=== PATIENT | male | born 1980 | race Caucasian/White ===

== ENCOUNTER 2021-02-26 15:24 | Outpatient (CLI) | payer OTHER | END 2021-02-26 15:25 | disposition home or self-care (01) | LOC: COV 15:24 | PROVIDERS: ATTEND Family Medicine | DX: R05 Cough (principal); R68.83 Chills (without fever); R09.81 Nasal congestion; J34.89 Other specified disorders of nose and nasal sinuses; Z20.822 Contact with and (suspected) exposure to COVID-19 ==

== ENCOUNTER 2021-04-08 14:26 | Outpatient (CLI) | payer OTHER ==
--- NOTE | 2021-04-08 15:05 | XRAY Report ---
PROCEDURE: Thoracic Spine 2 View INDICATIONS: SHOULDER PAIN TECHNIQUE: 3 views of the thoracic spine were acquired. COMPARISON: None. FINDINGS: THORACIC SPINE: No acute, displaced fracture or retropulsion. Dextrocurvature of the thoracic spine. The vertebral body heights and intervertebral disc spaces are maintained. SOFT TISSUES: No prevertebral soft tissue thickening. IMPRESSION: 1. No acute osseous abnormality of the thoracic spine. Reviewed by: Marvin Ocampo MD on 04/08/2021 3:04 PM PDT Approved by: Marvin Ocampo MD on 04/08/2021 3:04 PM PDT Station ID: [id number]
--- NOTE | 2021-04-08 15:08 | XRAY Report ---
PROCEDURE: Cervical Spine 2 View INDICATIONS: BILAT SHOULDER PAIN TECHNIQUE: 3 view(s) of the cervical spine were acquired. COMPARISON: None. FINDINGS: C-SPINE: No acute, displaced fracture or malalignment. The vertebral body heights and intervertebral disc spaces are maintained. SOFT TISSUES: No prevertebral soft tissue thickening. IMPRESSION: 1.No acute osseous abnormality of the cervical spine. Reviewed by: Marvin Ocampo MD on 04/08/2021 3:07 PM PDT Approved by: Marvin Ocampo MD on 04/08/2021 3:07 PM PDT Station ID: [id number]
--- NOTE | 2021-04-08 15:12 | XRAY Report ---
PROCEDURE: Shoulder 3 View BILAT INDICATIONS: BILATERAL SHOULDER PAIN TECHNIQUE: 3 views of the bilateral shoulders were acquired. COMPARISON: None. FINDINGS: BONES: No acute, displaced fracture or dislocation. The glenohumeral and acromioclavicular joint spac es are maintained. Minimal bony protuberance of the right proximal humerus, which may reflect remote avulsion injury. SOFT TISSUES: No focal abnormality or appreciable pneumothorax. IMPRESSION: 1.No acute osseous abnormality. Reviewed by: Marvin Ocampo MD on 04/08/2021 3:10 PM PDT Approved by: Marvin Ocampo MD on 04/08/2021 3:10 PM PDT Station ID: [id number]
== END 2021-04-08 14:27 | disposition home or self-care (01) ==
LOC: DI.S 14:26
PROVIDERS: ATTEND Nurse Practitioner Family
DX: M25.511 Pain in right shoulder (principal); M25.512 Pain in left shoulder

== ENCOUNTER 2022-04-01 10:42 | Outpatient (CLI) | payer OTHER ==
--- NOTE | 2022-04-01 11:02 | XRAY Report ---
PROCEDURE: Chest 2 View X-Ray INDICATIONS: COUGH TECHNIQUE: 2 view(s) of the chest. COMPARISON: 04/08/2021 FINDINGS: Left upper lobe pulmonary nodule measuring 7 mm is unchanged from 04/08/2021 thoracic spine radiograp hs. Lungs otherwise clear. No pleural effusion or pneumothorax. Heart size normal. IMPRESSION: Approximately 7 mm nodular opacity in the left upper lobe is unchanged from 04/08/2021. Reviewed by: Anastacio Valle MD on 04/01/2022 11:01 AM PDT Approved by: Anastacio Valle MD on 04/01/2022 11:01 AM PDT Station ID: [id number]
[2022-04-01 14:45] LABS: BASOPHILS % (AUTO) 0.5 %; EOSINOPHILS # (AUTO) 0.1 10^3/uL (0.0-0.7); EOSINOPHILS % (AUTO) 0.7 %; HCT - HEMATOCRIT 44.8 % (42.0-52.0); HGB - HEMOGLOBIN 14.7 g/dL (14.0-18.0); LYMPHOCYTES # (AUTO) 4.3 10^3/uL (1.5-3.5); LYMPHOCYTES % (AUTO) 58.7 %; MEAN CORPUSCULAR HEMOGLOBIN 29.2 pg (27.0-31.0); MEAN CORPUSCULAR HGB CONC 32.8 g/dL (32.0-36.0); MEAN CORPUSCULAR VOLUME 88.9 fL (80.0-94.0); MEAN PLATELET VOLUME 10.1 fL (7.4-11.4); MONOCYTES # (AUTO) 0.6 10^3/uL (0.0-1.0); MONOCYTES % (AUTO) 7.7 %; NEUTROPHILS # (AUTO) 2.2 10^3/uL (1.5-6.6); NEUTROPHILS % (AUTO) 30.2 %; PLT - PLATELET COUNT 217 10^3/uL (130-450); RED BLOOD COUNT 5.04 10^6/uL (4.70-6.10); RED CELL DISTRIBUTION WIDTH 13.1 % (12.0-15.0); WHITE BLOOD COUNT 7.3 x10^3/uL (4.8-10.8)
[2022-04-01 14:50] LABS: SLIDE REVIEW? Indicated
[2022-04-01 15:25] LABS: ALBUMIN 4.2 g/dL (3.2-5.5); ALBUMIN/GLOBULIN RATIO 1.2 (1.0-2.2); BILIRUBIN,TOTAL 0.7 mg/dL (0.2-1.0); CALCIUM 9.4 mg/dL (8.5-10.3); CREATININE 0.9 mg/dL (0.6-1.2); POTASSIUM 4.4 mmol/L (3.5-5.0); TOTAL PROTEIN 7.6 g/dL (6.7-8.2)
[2022-04-01 15:29] LABS: PLATELET ESTIMATE, MANUAL NORMAL (130-450,000) (NORMAL); PLATELET MORPHOLOGY NORMAL APPEARANCE (NORMAL); RBC MORPHOLOGY (MULTIPLE) NORMAL APPEARANCE (NORMAL)
[2022-04-01 15:36] LABS: THYROID STIMULATING HORMONE 2.48 uIU/mL (0.34-5.60)
== END 2022-04-01 10:43 | disposition home or self-care (01) ==
LOC: DI.S 10:42
PROVIDERS: ATTEND Physician Assistant Medical
DX: R05.9 Cough, unspecified (principal); R07.81 Pleurodynia; R91.8 Other nonspecific abnormal finding of lung field
CPT/HCPCS: 36415; 80053; 84443; 85025; 85027

== ENCOUNTER 2022-04-01 18:54 | Outpatient (CLI) | payer OTHER | END 2022-04-01 18:55 | disposition critical access hospital (66) | LOC: EMS 18:54 | DX: T78.05XA Anaphylactic reaction due to tree nuts and seeds, initial encounter (principal); R06.00 Dyspnea, unspecified; R60.0 Localized edema; H57.89 Other specified disorders of eye and adnexa; R09.89 Other specified symptoms and signs involving the circulatory and respiratory systems; R23.2 Flushing | CPT/HCPCS: A0425; A0427 ==

== ENCOUNTER 2022-04-01 19:25 | Emergency (ER) | payer OTHER ==
[2022-04-01] MEDS ORDERED: predniSONE 20 MG TABLET PO STA (19:30)
--- NOTE | 2022-04-01 20:35 | ED Physician Documentation ---
History of Present Illness - Stated complaint Stated Complaint: ALLERGIC REACTION - Chief complaint Chief Complaint: Allergic Rx - History obtained from History obtained from: Patient, Family, EMS - History of Present Illness Timing: Today Pain level max: 0 Pain level now: 0 - Additonal information Additional information: Patient is a 41-year-old male brought in by EMS for anaphylactic reaction. He apparently ate a horse [place] today. Does not have any history of prior allergic reactions. He was given epinephrine and Benadryl by EMS. He states he is feeling much improved now. Was having facial swelling, throat swelling and difficulty breathing. The medications were given about an hour prior to arr ival. Review of Systems Ten Systems: 10 systems reviewed and negative Constitutional: denies: Fever, Chills Respiratory: denies: Cough GI: denies: Abdominal Pain, Vomiting, Diarrhea Skin: denies: Rash Musculoskeletal: denies: Neck pain, Back pain Neurologic: denies: Headache PD PAST MEDICAL HISTORY - Past Medical History Past Medical History: No - Past Surgical History Past Surgical History: No - Present Medications Home Medications: Ambulatory Orders Medication Instructions Recorded Confirmed EPINEPHrine [Epinephrine] 0.3 mg IJ ONCE PRN #1 each 04/01/22 predniSONE [Deltasone] 40 mg PO DAILY #10 tablet 04/01/22 - Allergies Allergies/Adverse Reactions: Allergies Allergy/AdvReac Type Severity Reaction Status Date / Time Penicillins Allergy Anaphylaxis Verified 04/01/22 19:29 - Social History Does the pt smoke?: No Smoking Status: Never smoker Does the pt drink ETOH?: No Does the pt have substance abuse?: No - Immunizations Immunizations are current?: Yes PD ED PE NORMAL - Vitals Vital signs reviewed: Yes - General General: Alert and oriented X 3, No acute distress - HEENT HEENT: Moist mucous membranes, Pharynx benign, Other (Normal phonation. No trismus. No stridor. No wheezing) - Neck Neck: Supple, no meningeal sign - Cardiac Cardiac: RRR, Strong equal pulses - Respiratory Respiratory: No respiratory distress, Clear bilaterally - Abdomen Abdomen: Soft, Non tender, Non distended - Derm Derm: Warm and dry, No rash - Neuro Neuro: Alert and oriented X 3 - Psych Psych: Normal mood, Normal affect Results - Vitals Vitals: Vital Signs - 24 hr 04/01/22 04/01/22 04/01/22 19:29 20:02 20:30 Temperature 36.8 C Heart Rate 76 73 68 Respiratory 12 16 14 Rate Blood Pressure 120/70 113/68 115/70 O2 Saturation 99 97 98 Oxygen O2 Source Room air PD MEDICAL DECISION MAKING - ED course Complexity details: re-evaluated patient, considered differential, d/w patient, d/w family ED course: 41-year-old male with anaphylactic reaction to a horse [place] tonight. He was given prednisone upon arrival here. He had already been given epinephrine and Benadryl with EMS. He was monitored for approximately 2-1/2 hours post epinephrine injection. No recurrence of symptoms. Patient remained asymptomatic. No difficulty breathing. We did discuss with poison control, they state that the chest not should not have any toxic effects. Patient and family counseled regarding signs and symptoms for which I believe and urgent re- evaluation would be necessary. Patient with good understanding of and agreement to plan and is comfortable going home at this time This document was made in part using voice recognition software. While efforts are made to proofread this document, sound alike and grammatical errors may occur. Departure - Departure Disposition: 01 Home, Self Care Clinical Impression: Anaphylactic reaction Qualifiers: Encounter type: initial encounter Qualified Code(s): T78.2XXA - Anaphylactic shock, unspecified, initial encounter Condition: Good Instructions: ED Allergic Reaction General Other Follow-Up: MARGIE BAUER ARNP [Primary Care Provider] - Within 1 week Prescriptions: predniSONE [Deltasone] 40 mg PO DAILY #10 tablet EPINEPHrine [Epinephrine] 0.3 mg IJ ONCE PRN #1 each PRN Reason: Anaphylaxis Comments: Your prescriptions were sent to [facility] in [place]. Please follow-up with your doctor for further care as needed. Please return if you worsen. If you need to use the epinephrine pen, you need to be seen right away in the emergency department as the epinephrine pen buys you time to get to medical care.
[2022-04-01 21:14] VITALS: BP 110/68
== END 2022-04-01 21:14 | disposition home or self-care (01) ==
LOC: ED 19:25
DX: T78.05XA Anaphylactic reaction due to tree nuts and seeds, initial encounter (principal)
CPT/HCPCS: 99283; 99284; J7512; 36415; 80053; 84443; 85025; 85027

== ENCOUNTER 2023-11-04 07:48 | Outpatient (CLI) | payer BC ==
--- NOTE | 2023-11-04 10:40 | MRI Report ---
PROCEDURE: Shoulder LT WO INDICATIONS: L SHOULDER PAIN TECHNIQUE: Noncontrast oblique coronal T2 fast spin echo with fat saturation, oblique sagittal T1 spin echo and T2 fast spin echo with fat saturation, axial T1 spin echo and T2 fast spin echo with fat saturation t hrough the shoulder. COMPARISON: None. FINDINGS: Image quality: Excellent. Rotator cuff: Low-grade bursal surface tearing of the mid and posterior supraspinatus as well as the anterior and mid infraspinatus tendon at the humeral insertion sites extending the muscular tendinous junctions. Subscapularis and teres minor tendons are intact. No rotator cuff atrophy. No rotator cuf f muscle atrophy on sagittal images. Bones and bursae: No bone marrow contusions or fractures. Mild glenohumeral and acromioclavicular collette int degeneration. The acromion demonstrates conventional anatomy, without an os acromiale. No patho logic subacromial/subdeltoid bursal fluid is present. Capsule and soft tissues: In the absence of intra-articular contrast, the labrum and glenohumeral li gaments appear intact. The long head of the biceps tendon demonstrates normal location and partial-t hickness tearing. The rotator interval appears normal, without fibrosis. The coracohumeral ligament is normal in thickness. IMPRESSION: 1. Low-grade tearing of the supraspinatus and infraspinatus tendons. No full-thickness rotator cuff t ear. 2. Partial-thickness biceps tendon tear. 3. Mild acromioclavicular and glenohumeral joint osteoarthritis. Reviewed by: Molly Jimenez MD on 11/04/2023 10:38 AM PDT Approved by: Molly Jimenez MD on 11/04/2023 10:38 AM PDT Station ID: [id number]
== END 2023-11-04 07:49 | disposition home or self-care (01) ==
LOC: DI 07:48
PROVIDERS: ATTEND Registered Nurse
DX: M75.112 Incomplete rotator cuff tear or rupture of left shoulder, not specified as traumatic (principal); S46.222A Laceration of muscle, fascia and tendon of other parts of biceps, left arm, initial encounter; M19.012 Primary osteoarthritis, left shoulder